=== PATIENT | female | born 1955 | race African-American/Black ===

== ENCOUNTER 2020-01-04 18:32 | Emergency (ER) | payer SELFPAY ==
[2020-01-04] MEDS ORDERED: Nitroglycerin 2% Ointment 1 INCH/1 GM Packet ONE (19:03)
[2020-01-04] MEDS ORDERED: niCARdipine 20MG In NaCl 20 MG/200 ML BAG ONE ×2 (19:03→23:38)
--- NOTE | 2020-01-04 21:12 | PDOC.HHP ---
Hospitalist HPI - History of Present Illness right sided facial weakness and blurry vision History of Present Illness: Patient is a poor historian. No previos EMR available so H&P based on patient's report 64F w/ MHx of poorly controlled HTN, T2DM presents for right sided facial numbness and blurry vision. Patient had symptom onset this morning, sudden, went to [facility] emergency room, found to have grossly elevated blood pressure but symptoms resolved, startged on cardizem bolus and drip, metoprolol and aspirin and was transfered to [facility]. On encounter, lying comfortably in bed and has no complaints. Endorses improvement in vision and having no antihtn medications for the past few days. Denies facial numbness, fatigue, chest pain, palpitations, dyspnea, swelling, abdominal pain, hematuria, focal weakness. ED Course: In the ED, grossly elevated blood pressure. Started cardene drip, nitro paste to bring blood pressure below 220/120 and transfered to [facility] Hospitalist ROS - Review of Systems All other systems reviewed; all pertinent +/- noted in HPI/Subj Hospitalist History - Past Medical History Source: patient Cardiac: reports: HTN. denies: AFIB, CAD, CHF Pulmonary: denies: CVA/TIA/stroke, lung disease PULP GR[employer]ER [employer]ER: denies: CVA, Seizure, TIA - Past Surgical History Past Surgical History: reports: , Hysterectomy - Family History Family History: reports: diabetes mellitus, hypertension - Social History Smoking Status: Current every day smoker Tobacco Type: cigarettes Alcohol: reports: Rare Drugs: reports: none Living Situation: With Family Activity level: independent ambulation - Exam General Appearance: NAD, awake alert General - other findings: morbidly obese Eye: PERRL, anicteric sclera ENT: normocephalic atraumatic, moist mucosa Neck: no JVD Heart: RRR, no murmur, no gallops, no rubs Respiratory: CTAB, no wheezes, no rales, no ronchi Respiratory - other findings: diffusely reduced breath sounds Extremities: 1+ LE edema Extremities - other findings: b/l equal to level of 1/3rd tibia Neurological: cranial nerve grossly intact, normal sensation to touch, no weakness, no focal deficits, no new deficit, vision deficit. negative: facial droop, hemiplegia, speech deficit Psychiatric: normal affect, normal behavior, A&O x 3 Hospitalist Results - Radiology Interpretation CT scan - head Status: report reviewed by me Additional Comment: no acute process Hospitalist H&P A/P - Problem (1) TIA (transient ischemic attack) Code(s): G45.9 - TRANSIENT CEREBRAL ISCHEMIC ATTACK, UNSPECIFIED Status: Acute (2) Hypertensive emergency Code(s): I16.1 - HYPERTENSIVE EMERGENCY Status: Acute (3) Type 2 diabetes mellitus Status: Acute - Plan Plan: #TIA/HTN emergency -continue cardene drip; goal ~low 200/100s -tomorrow will start oral antihtn to gradually lower blood pressure and transition to telemetry floor -echo, carotid u/s, IMCU #T2DM -on metformin and glyburide at home; will restart #dispo/ppx -full code. daughter is surrogate -DVT PPx lovenox -GI PPx: no Ix
--- NOTE | 2020-01-06 00:43 | DIS ---
DATE OF ADMISSION: 01/04/2020 DATE OF DISCHARGE: 01/05/2020 HOSPITAL COURSE: Ms. Augustin is a 64-year-old female, with medical history of poorly controlled hypertension, type 2 diabetes, presents with right-sided facial numbness and blurry vision. She was diagnosed with hypertensive emergency with systolic blood pressure up to 290s resulting in TIA. On arrival to the ED, the patient's symptoms resolved. She was started on Cardene and blood pressure decreased to goal less than 220/120. The patient was admitted to the [facility]. However, due to nonavailability of beds, she was transferred to the [facility]. The patient was transferred prior to the health science writer of this note being able to carry out physical exam. DISCHARGE MEDICATIONS: New medications: No new medications. Modified medications: No modified medications. Continued medications: 1. Aspirin. 2. Diltiazem. 3. Lasix. 4. Glipizide. 5. Metformin. 6. Metoprolol succinate. Job ID: [id number] MTDD
== END 2020-01-05 00:25 | disposition short-term general hospital (02) ==
LOC: ERS 18:32
DX: I16.1 Hypertensive emergency (principal); G45.9 Transient cerebral ischemic attack, unspecified; E78.5 Hyperlipidemia, unspecified; E11.9 Type 2 diabetes mellitus without complications; I10 Essential (primary) hypertension; F17.210 Nicotine dependence, cigarettes, uncomplicated; Z79.899 Other long term (current) drug therapy; Z79.84 Long term (current) use of oral hypoglycemic drugs; Z79.82 Long term (current) use of aspirin
CPT/HCPCS: 96365; 96366

== ENCOUNTER 2021-02-18 13:50 | Inpatient (IN) | payer MEDICARE, OTHER ==
[2021-02-18 16:05] VITALS: BMI 40.7
[2021-02-18] MEDS ORDERED: Ondansetron ODT 4 MG TAB PO PRN (16:26)
[2021-02-18] MEDS ORDERED: Acetaminophen 325 MG TAB PO PRN (16:26)
[2021-02-18] MEDS ORDERED: Ondansetron PF 4 MG/2 ML Vial IVP PRN (16:26)
[2021-02-18] MEDS ORDERED: Calcium Carbonate 500 MG ChewTAB PO PRN (16:26)
[2021-02-18] MEDS ORDERED: Insulin Regular 300 UNITS/3 ML VIAL SC PRN ×2 (16:30)
[2021-02-18] MEDS ORDERED: Dextrose 50% Abboject 50 ML SYRINGE SLOW IVP PRN (16:30)
[2021-02-18] MEDS ORDERED: Dextrose 5% in Water 1,000 ML IV PRN (16:30)
[2021-02-18 17:49] LABS: Hemoglobin 11.1 g/dL (12.0-16.0); Platelet Count 265 thou/uL (130-400)
[2021-02-18] MEDS: Pantoprazole 80 MG in Sodium Chloride 0.9% 100 ML IVPB SCH (17:56)
[2021-02-18] MEDS: NS 0.9% w/ 20 MEQ KCL 1,000 ML/1,000 ML BAG IV SCH (17:57)
[2021-02-18 18:25] LABS: Iron 44 ug/dL (50-170); Iron Binding Capacity, Total 310 mcg/dL (265-497)
[2021-02-19] MEDS: NS 0.9% w/ 20 MEQ KCL 1,000 ML/1,000 ML BAG IV SCH ×3 (01:04→08:46)
[2021-02-19] MEDS: Pantoprazole 80 MG in Sodium Chloride 0.9% 100 ML IVPB SCH (03:29)
[2021-02-19 04:53] LABS: #Eosinphils 0.1 thou/uL (0.0-0.7); #Lymphocytes 3.3 thou/uL (1.20-3.40); #Monocytes 0.6 thou/uL (0.11-0.59); #Neutrophils 5.1 thou/uL (1.40-6.50); %Eosinophils 1.4 % (0.0-10.0); %Lymphocytes 35.6 % (21.0-51.0); %Neutrophils 56.1 % (42.0-75.0); Hemoglobin 9.3 g/dL (12.0-16.0); Mean Corpuscular HGB CONC 33.8 g/dL (32.0-36.0); Mean Corpuscular Hemoglobin 32.9 pg (27.0-31.0); Mean Corpuscular Volume 97.2 fL (78.0-98.0); Mean Platelet Volume 8.4 fL (7.4-10.4); Platelet Count 250 thou/uL (130-400); RBC Distribution Width 11.5 % (11.5-14.5); Red Blood Cell (RBC) Count 2.82 mill/uL (4.20-5.40); White Blood Cell (WBC) Count 9.2 thou/uL (4.8-10.8)
[2021-02-19 05:29] LABS: ALT (SGPT) 8 U/L (8-55); AST (SGOT) 12 U/L (5-34); Albumin 3.1 g/dL (3.4-4.8); Alkaline Phosphatase 52 U/L (40-110); Anion Gap 9 mmol/L (10-20); BUN (Urea Nitrogen) 52 mg/dL (9.8-20.1); Bilirubin, Total 0.4 mg/dL (0.2-1.2); Calc. Creatinine Clearance 75 mL/min (70-130); Calcium 8.6 mg/dL (7.8-10.44); Carbon Dioxide 24 mmol/L (23-31); Chloride 108 mmol/L (98-107); Globulin 2.2 g/dL (2.4-3.5); Glucose 81 mg/dL (80-115); Potassium 3.6 mmol/L (3.5-5.1); Protein, Total 5.3 g/dL (5.8-8.1); Sodium 137 mmol/L (136-145)
[2021-02-19] MEDS ORDERED: Glycopyrrolate 0.2 MG/ML 5 ML SYRINGE ONE (11:06)
[2021-02-19] MEDS ORDERED: PROPOFOL 200 MG/20 ML VIAL ONE (11:06)
[2021-02-19] MEDS ORDERED: Lidocaine 1% PF 5 ML VIAL ONE (11:06)
[2021-02-19] MEDS ORDERED: Sodium Chloride 0.9% (PF) 10 ML VIAL FS PRN (12:30)
[2021-02-19 16:22] LABS: Hemoglobin 9.5 g/dL (12.0-16.0)
[2021-02-19] MEDS: Pantoprazole 40 MG VIAL IVP SCH (22:00)
[2021-02-20 04:40] LABS: #Eosinphils 0.1 thou/uL (0.0-0.7); #Lymphocytes 2.4 thou/uL (1.20-3.40); #Monocytes 0.5 thou/uL (0.11-0.59); #Neutrophils 3.6 thou/uL (1.40-6.50); %Basophils 0.4 % (0.0-1.0); %Eosinophils 1.6 % (0.0-10.0); %Lymphocytes 35.9 % (21.0-51.0); %Monocytes 7.5 % (0.0-10.0); %Neutrophils 54.6 % (42.0-75.0); Hemoglobin 8.6 g/dL (12.0-16.0); Mean Corpuscular HGB CONC 31.8 g/dL (32.0-36.0); Mean Corpuscular Hemoglobin 31.1 pg (27.0-31.0); Mean Corpuscular Volume 97.7 fL (78.0-98.0); Mean Platelet Volume 8.5 fL (7.4-10.4); Platelet Count 241 thou/uL (130-400); RBC Distribution Width 11.6 % (11.5-14.5); Red Blood Cell (RBC) Count 2.77 mill/uL (4.20-5.40); White Blood Cell (WBC) Count 6.6 thou/uL (4.8-10.8)
[2021-02-20] MEDS: Pantoprazole 40 MG VIAL IVP SCH (10:14)
[2021-02-20 14:50] LABS: Hemoglobin 9.5 g/dL (12.0-16.0)
[2021-02-21 04:37] LABS: #Eosinphils 0.1 thou/uL (0.0-0.7); #Lymphocytes 2.8 thou/uL (1.20-3.40); #Monocytes 0.5 thou/uL (0.11-0.59); #Neutrophils 3.9 thou/uL (1.40-6.50); %Basophils 0.4 % (0.0-1.0); %Lymphocytes 37.9 % (21.0-51.0); %Monocytes 6.8 % (0.0-10.0); %Neutrophils 52.9 % (42.0-75.0); Hemoglobin 8.4 g/dL (12.0-16.0); Mean Corpuscular HGB CONC 33.8 g/dL (32.0-36.0); Mean Corpuscular Hemoglobin 32.7 pg (27.0-31.0); Mean Corpuscular Volume 96.6 fL (78.0-98.0); Mean Platelet Volume 8.5 fL (7.4-10.4); Platelet Count 228 thou/uL (130-400); RBC Distribution Width 11.4 % (11.5-14.5); Red Blood Cell (RBC) Count 2.56 mill/uL (4.20-5.40); White Blood Cell (WBC) Count 7.3 thou/uL (4.8-10.8)
[2021-02-21 04:55] LABS: Anion Gap 7 mmol/L (10-20); BUN (Urea Nitrogen) 15 mg/dL (9.8-20.1); Calc. Creatinine Clearance 105 mL/min (70-130); Calcium 8.5 mg/dL (7.8-10.44); Carbon Dioxide 27 mmol/L (23-31); Chloride 110 mmol/L (98-107); Glucose 107 mg/dL (80-115); Potassium 3.8 mmol/L (3.5-5.1); Sodium 140 mmol/L (136-145)
[2021-02-21 09:51] LABS: Hemoglobin 9.1 g/dL (12.0-16.0)
[2021-02-21] MEDS ORDERED: Polyethylene Glycol 3350 17 GM Packet PO PRN (11:21)
[2021-02-21 12:13] VITALS: TEMP 98.3
[2021-02-21 12:19] VITALS: BP 139/83
== END 2021-02-21 13:25 | disposition home or self-care (01) | DRG 378 ==
LOC: 2NO 15:28
PROVIDERS: ADMIT Internal Medicine; ATTEND Internal Medicine
PROC: 0W3P8ZZ Control Bleeding in Gastrointestinal Tract, Via Natural or Artificial Opening Endoscopic (ICD-10-PCS; principal; 2021-02-19)
PROC: 0DB68ZX Excision of Stomach, Via Natural or Artificial Opening Endoscopic, Diagnostic (ICD-10-PCS; 2021-02-19)
DX: K25.4 Chronic or unspecified gastric ulcer with hemorrhage (principal); N17.9 Acute kidney failure, unspecified; E87.2 Acidosis; Z68.41 Body mass index [BMI] 40.0-44.9, adult; D62 Acute posthemorrhagic anemia; E66.01 Morbid (severe) obesity due to excess calories; E78.5 Hyperlipidemia, unspecified; M19.90 Unspecified osteoarthritis, unspecified site; F17.210 Nicotine dependence, cigarettes, uncomplicated; I12.9 Hypertensive chronic kidney disease with stage 1 through stage 4 chronic kidney disease, or unspecified chronic kidney disease; E11.22 Type 2 diabetes mellitus with diabetic chronic kidney disease; N18.9 Chronic kidney disease, unspecified; B96.81 Helicobacter pylori [H. pylori] as the cause of diseases classified elsewhere; K29.50 Unspecified chronic gastritis without bleeding; Z86.73 Personal history of transient ischemic attack (TIA), and cerebral infarction without residual deficits; Z88.8 Allergy status to other drugs, medicaments and biological substances; Z90.710 Acquired absence of both cervix and uterus; Z79.82 Long term (current) use of aspirin; Z79.899 Other long term (current) drug therapy
CPT/HCPCS: 36415; 36416; 80048; 80053; 82728; 83540; 83550; 84484; 85025; 86850; 86900; 86901; 88305; 88312; C9113; J2704; J3480; J3490